=== PATIENT | male | born 1960 | race Caucasian/White ===

== ENCOUNTER 2024-07-01 12:23 | Emergency (ER) | payer OTHER, SELFPAY ==
[2024-07-01 12:27] VITALS: BP 166/98
[2024-07-01 13:06] VITALS: BMI 29.2
--- NOTE | 2024-07-01 13:06 | ED.CVA ---
History of Present Illness
General
Chief Complaint: CVA/TIA Symptoms
Source: patient
Time Seen by Provider: 07/01/24 12:41
Onset of Stroke Symptoms
Onset of symptoms known: No
Time pt last seen normal is known: No
History of Present Illness
History of Present Illness:
This patient is a 64-year-old male who says he first noticed a little discomfort in the left scalp area that went away yesterday. Then, this morning, he noted that he went to spit out the mouthwash and it was dribbling out the left side. He looked
in the mirror noticed that he had a left facial droop and that he could not fully close his left eye. He also notes intermittent pain of the left ear. He denies associated numbness, tingling, focal weakness, change in vision, change in speech,
change in balance, chest pain, dyspnea, fever, chills, nausea, vomiting, or other complaints. Patient denies rash or recent tick bites.
Past History
Past History
ED Past Medical History: HTN, Hypercholesterolemia, NIDDM and Other (Kidney stone)
ED Past Surgical History: Appendectomy and Urological
Social History
Tobacco: Non-smoker
Alcohol: None
Drug: None
Personal:
Living: with family
Family History
Family History: Negative Diabetes, Hypertension or CAD
Phy Exam
Physical Exam
Physical Exam:
GENERAL: Alert , in no apparent distress
EYE: pupils equal and reactive, no photophobia, no nystagmus, EOMI
NECK: Supple, no significant adenopathy.
ENT: o/p clr, mmm, TMs clear bilaterally, no canal edema, no zoster like rash or other abnormalities.
CARDIAC: Regular rate and rhythm .
LUNGS: Clear breath sounds bilaterally, no acute respiratory distress, no wheezes/rales/rhonchi
ABDOMEN: Soft, without focal tenderness, no r/g, no cvat
NEUROLOGICAL: Alert and oriented, no focal neuro deficits with the exception of a cranial 7 weakness. Patient has left-sided facial droop, weakness of left eyelid closure, and weakness of left forehead area, otherwise cranial nerves intact,
[id number] normal, motor 5 out of 5, sensory intact
SKIN: Warm and dry, skin intact.
MUSCULOSKELETAL: No edema, well perfused.
PSYCH: Normal and appropriate interaction.
Course
Orders/Labs/Results
Orders:
Orders
07/01/24 12:29
CT Head W/o Iv Contrast Urgent
Comment:
Reason For Exam: left facial droop started 530 am
Vital Signs
Initial and Last Documented VS:
Initial Vital Signs
Temp Pulse Resp BP Pulse Ox
98.0 F 93 16 166/98 98
07/01/24 12:27 07/01/24 12:27 07/01/24 12:27 07/01/24 12:27 07/01/24 12:27
Last Documented Vital Signs
Temp Pulse Resp BP Pulse Ox
98.0 F 93 16 166/98 98
07/01/24 12:27 07/01/24 12:27 07/01/24 12:27 07/01/24 12:27 07/01/24 12:27
*Critical Care Note
Total Time (30-74mins, 75-104mins- exclusive of procedures): Not Applicable
Update Note
Update Note:
Patient presents to the Emergency Department with ____facial weakness
Number and Complexity of Problems Addressed at the Encounter
� Chronic conditions affecting care:
� Acute Exacerbation and/or Progression of Chronic Illness:
� Differential Diagnosis includes: But not limited to zoster, Lyme, Meraz's palsy, TIA/CVA, etc.
Amount and/or Complexity of Data to be Reviewed and Analyzed
� I performed an independent evaluation of and my interpretation is:
EKG:
CT: Read by radiology NAD
Xrays:
Laboratory Studies:
Other:
� Review of other/old records reveals:
� Clinical information was obtained by an independent historian: Son who is bedside
� Prescriptions/Medications Considered but not given:
� Further testing considered but not performed:
Risk of Complications and/or Morbidity or Mortality of Patient Management
� Social determinants of health affecting care:
� Discussion with other providers (PCP, Hospitalists, Consultants, etc):
� Escalation of care including admission/observation vs risk of discharge considered: Long d/w pt and son regarding import of eye care, tape at night, regular drops to lubricate, reasons to rted and import of f/u. Pt questions
answerd, he expressed understanding and is pleased with plan.
ED Attending Note
-
Portions of this chart may have been created with voice recognition software.� Occasional wrong word or��sound alike� substitutions may have occurred due to the inherent limitations of voice recognition software.
Discharge Plan
Departure
Date of Disposition: 07/01/24
Time of Disposition: 13:16
Patient with high blood pressure during this ER visit?: Yes
Condition: Good
Instructions: Meraz's Palsy (DC), BLOOD PRESSURE
Prescriptions:
New
prednisone 20 mg tablet
60 mg PO DAILY 6 Days Qty: 18 0RF
valacyclovir [Valtrex] 1 gram tablet
1,000 mg PO TID Qty: 20 0RF
No Action
oxycodone-acetaminophen 5 MG/325 MG tablet
1 tab PO Q4HPRN PRN (Reason: pain) Qty: 10 0RF
tamsulosin 0.4 MG capsule
0.4 mg PO DAILY Qty: 6 0RF
Activity Restrictions/Additional Instructions:
PLEASE SEE YOUR DOCTOR IN 3-4 DAYS FOR FOLLOW UP. IF YOU DEVELOP NUMBNESS, WEAKNESS, CHEST PAIN, TROUBLE BREATHING, CHANGE IN VISION/SPEECH/BALANCE, OR OTHER WORRISOME SIGNS, GO TO THE ER IMMEDIATELY!
Discharge Date and Time
Print Language: ICELANDIC
[2024-07-01] MEDS: DELTASONE 60 MG PO (13:17)
[2024-07-01] MEDS: VALTREX 1000 MG PO (13:17)
--- NOTE | 2024-07-01 13:22 | ED.CVA ---
History of Present Illness
General
Chief Complaint: CVA/TIA Symptoms
Time Seen by Provider: 07/01/24 12:41
Past History
Past History
ED Past Medical History: HTN, Hypercholesterolemia, NIDDM and Other (Kidney stone)
ED Past Surgical History: Appendectomy and Urological
Social History
Tobacco: Non-smoker
Alcohol: None
Drug: None
Personal:
Living: with family
Family History
Family History: Negative Diabetes, Hypertension or CAD
Course
Orders/Labs/Results
Orders:
Orders
07/01/24 12:29
CT Head W/o Iv Contrast Urgent
Comment:
Reason For Exam: left facial droop started 530 am
07/01/24 13:11
Prednisone [Deltasone] 60 mg PO NOW STA
Valacyclovir HCl [Valtrex] 1,000 mg PO NOW STA
07/01/24 13:12
Lyme Progressive Urgent
Vital Signs
Initial and Last Documented VS:
Initial Vital Signs
Temp Pulse Resp BP Pulse Ox
98.0 F 93 16 166/98 98
07/01/24 12:27 07/01/24 12:27 07/01/24 12:27 07/01/24 12:27 07/01/24 12:27
Last Documented Vital Signs
Temp Pulse Resp BP Pulse Ox
98.0 F 87 13 166/98 97
07/01/24 12:27 07/01/24 13:04 07/01/24 13:04 07/01/24 12:27 07/01/24 13:04
ED Attending Note
-
Portions of this chart may have been created with voice recognition software.� Occasional wrong word or��sound alike� substitutions may have occurred due to the inherent limitations of voice recognition software.
Discharge Plan
Departure
Patient Disposition: Home (Routine Discharge)
Date of Disposition: 07/01/24
Time of Disposition: 13:22
Patient with high blood pressure during this ER visit?: Yes
Condition: Good
Discharge Problem:
Meraz's palsy
Instructions: Meraz's Palsy (DC), BLOOD PRESSURE
Prescriptions:
New
prednisone 20 mg tablet
60 mg PO DAILY 6 Days Qty: 18 0RF
valacyclovir [Valtrex] 1 gram tablet
1,000 mg PO TID Qty: 20 0RF
No Action
oxycodone-acetaminophen 5 MG/325 MG tablet
1 tab PO Q4HPRN PRN (Reason: pain) Qty: 10 0RF
tamsulosin 0.4 MG capsule
0.4 mg PO DAILY Qty: 6 0RF
Activity Restrictions/Additional Instructions:
PLEASE SEE YOUR DOCTOR IN 3-4 DAYS FOR FOLLOW UP. IF YOU DEVELOP NUMBNESS, WEAKNESS, CHEST PAIN, TROUBLE BREATHING, CHANGE IN VISION/SPEECH/BALANCE, OR OTHER WORRISOME SIGNS, GO TO THE ER IMMEDIATELY!
Interventions
Interventions:
*Risk Screen - Suicide Last Done: 07/01/24 13:06
*General Assessment Last Done: 07/01/24 13:06
*Neglect/Abuse Screening Last Done: 07/01/24 13:06
ED- Fall Risk Assessment Last Done: 07/01/24 13:06
*ED COVID-19 Vaccine History Last Done: 07/01/24 13:06
ED- Cardiac Assessment Last Done: 07/01/24 13:06
ED- Neurological Assessment Last Done: 07/01/24 13:06
ED- Pulmonary Assessment Last Done: 07/01/24 13:06
ED Swallowing Screen Last Done: 07/01/24 13:06
Discharge Date and Time
Print Language: BOLIVIAN
[2024-07-01 13:24] VITALS: BP 144/88
[2024-07-04 14:45] LABS: Lyme Antibody Screen, EIA Negative (Negative)
== END 2024-07-01 13:30 | disposition home or self-care (01) ==
LOC: EMR 12:23
PROVIDERS: EMERGENCY PHYSICIAN Emergency Medicine; FAMILY PHYSICIAN Family Medicine
DX: G51.0 Bell's palsy (principal); I10 Essential (primary) hypertension
CPT/HCPCS: 99284; 70450; 86618

== ENCOUNTER → 2024-10-27 10:38 | Outpatient (REF) | payer OTHER, SELFPAY | LOC: RAD 10:38 | PROVIDERS: ATTENDING PHYSICIAN Physician Assistant Medical | DX: E11.9 Type 2 diabetes mellitus without complications (principal); S23.9XXA Sprain of unspecified parts of thorax, initial encounter | CPT/HCPCS: 72072 ==

== ENCOUNTER 2024-12-06 06:24 | Day surgery (SDC) | payer OTHER, SELFPAY ==
[2024-12-06 07:57] LABS: Glucose - Point of Care 86 mg/dl (70-99)
== END 2024-12-06 09:47 | disposition home or self-care (01) ==
LOC: GI 06:24
PROVIDERS: ATTENDING PHYSICIAN Internal Medicine
DX: Z12.11 Encounter for screening for malignant neoplasm of colon (principal); K64.4 Residual hemorrhoidal skin tags; Z86.0101 Personal history of adenomatous and serrated colon polyps
CPT/HCPCS: G0105; 82962